=== PATIENT | male | born 1940 | race Caucasian/White ===

== ENCOUNTER 2019-06-20 11:12 | Inpatient (IN) | payer MEDICARE, OTHER ==
[~2019-06-20] VITALS: Ht 167.6 cm; Wt 70.7 kg
--- NOTE | 2019-06-20 11:29 | NUR ---
SWATI. REPORT RECEIVED FROM EMS. PT HAS BEEN LETHALGIC X 5 DAYS. (PT IS FROM [place]) PT'S SON TOOK HIM TO URGENT CARE AND SPO2 WAS 85% WITH RA. HX OF AR(PACEMAKER). ALTERED MENTAL STATUS PER PT'S SONS. PT'S SON STATES "HE IS SHARP, BUT HE IS OUT FOR A FEW DAYS." PT C/O CP YESTERDAY BUT ALL RESOLVED. PT'S AOX4. RESPS EVEN AND UNLABORED. ALL MONITORS IN PLACE. CALL LIGHT WITHIN REACH. SINUS TACHY ON MERGERS AND ACQUISITIONS MANAGER RATE 100'S AT THIS TIME. PT'S SONS AT BEDSIDE NOW.
--- NOTE | 2019-06-20 11:41 | NUR ---
URINAL AT BEDSIDE. PT AND PT'S SONS AWARE OF UA.
--- NOTE | 2019-06-20 11:41 | NUR ---
EKG AT BEDSIDE BY EMT.
[2019-06-20] MEDS ORDERED: SODIUM CHLORIDE FLUSH 10ML SYR IVF ONE (12:00)
[2019-06-20 12:09] LABS: MEAN CORPUSCULAR HEMOGLOBIN 36.7 pg (27.5-34.5); MEAN CORPUSCULAR HGB CONC 33.3 g/dL (33.2-36.2); MEAN CORPUSCULAR VOLUME 110.2 fL (81-97); MEAN PLATELET VOLUME 8.4 fL (7.4-10.4); PLATELET COUNT 208 x10^3/uL (130-400); RED BLOOD COUNT 3.63 x10^6/uL (4.38-5.82); RED CELL DISTRIBUTION WIDTH 13.3 % (9.4-14.8)
--- NOTE | 2019-06-20 12:12 | NUR ---
BLADDER SCAN SHOWED PT HAS ABOUT 200ML URINE. PT STATES "I CAN'T PEE."
[2019-06-20 12:13] LABS: ALBUMIN 3.2 g/dL (3.4-5.0); ANION GAP 8 mmol/L (5-15); CALCIUM 8.7 mg/dL (8.5-10.1); CHLORIDE 91 mmol/L (98-107); CREATININE 1.86 mg/dL (0.7-1.3)
[2019-06-20 12:17] LABS: ALKALINE PHOSPHATASE 98 U/L (45-117); BILIRUBIN,TOTAL 0.9 mg/dL (0.2-1.0); TOTAL PROTEIN 6.8 g/dL (6.4-8.2)
[2019-06-20 12:29] LABS: ALANINE AMINOTRANSFERASE 3466 U/L (12-78)
--- NOTE | 2019-06-20 12:31 | NUR ---
BREAK RN: PT UPRIGHT ON GURNEY WITH EYES CLOSED, RESPONDS APPROP TO STAFF, NAD, NO NEEDS AT THIS TIME, CALL LIGHT WITHIN REACH.
--- NOTE | 2019-06-20 12:45 | NUR ---
RAYMUNDO CORTEZ AT
[2019-06-20 12:48] LABS: MD MORPH REVIEW ONLY
[2019-06-20 12:49] LABS: ANISOCYTOSIS 1+; BASOPHILS # (AUTO) 0.04 x10^3/uL (0-0.1); BASOPHILS % (AUTO) 0 % (0-1); EOSINOPHILS % (AUTO) 0 % (1-7); LYMPHOCYTES # (AUTO) 0.76 x10^3/uL (1-3.4); LYMPHOCYTES % (AUTO) 6 % (22-44); MONOCYTES # (AUTO) 0.39 x10^3/uL (0.2-0.8); MONOCYTES % (AUTO) 3 % (2-9); NEUTROPHILS # (AUTO) 10.87 x10^3/uL (1.8-6.8); NEUTROPHILS % (AUTO) 90 % (42-75); PMNS WITH VACUOLES 1+; POLYCHROMASIA 1+
[2019-06-20 12:50] LABS: <PLATELET ESTIMATE> ADEQUATE; LARGE PLATELETS 1+
[2019-06-20 12:56] LABS: INTERNATIONAL NORMALIZED RATIO 1.53 (0.93-1.1); PROTHROMBIN TIME 15.8 Seconds (9.6-11.5)
--- NOTE | 2019-06-20 12:56 | NUR ---
called echo / coming now
--- NOTE | 2019-06-20 12:57 | NUR ---
PT UNABLE TO VOID, PT TOLERATED STRAIGHT CATH WELL, 100ML CONCENTRATED URINE OBTAINED, BLADDER EMPTY, UA SAMPLE SENT TO LAB, [facility] ARRIVED AT BS, [facility] CURRENTLY AT BS.
[2019-06-20] MEDS ORDERED: HEPARIN 5,000 UNITS/ML, 1ML IV ONE (13:00)
[2019-06-20] MEDS ORDERED: hydrALAzine 20 MG/ML, 1ML IVPush PRN (13:30)
[2019-06-20] MEDS ORDERED: OXYcodone IR 5MG TABLET PO PRN (13:30)
[2019-06-20] MEDS ORDERED: LORazepam 0.5MG TABLET PO PRN (13:30)
[2019-06-20] MEDS ORDERED: LORazepam 1MG TABLET PO PRN ×4 (13:30)
[2019-06-20] MEDS ORDERED: morphine SULFATE 10 MG/ML, 1ML IVPush PRN (13:30)
[2019-06-20] MEDS ORDERED: FOLIC ACID 5 MG/ML IM ONE ×2 (13:30→21:30)
[2019-06-20] MEDS: NICOTINE 14MG/24 HR PATCH.TD24 TD SCH (13:30)
[2019-06-20] MEDS ORDERED: LORazepam 2 MG/ML, 1ML IV PRN ×5 (13:30)
[2019-06-20] MEDS ORDERED: ONDANSETRON ODT 4 MG PO PRN (13:30)
[2019-06-20] MEDS ORDERED: PROMETHAZINE 25 MG/ML, 1ML IM PRN (13:30)
[2019-06-20] MEDS ORDERED: NITROGLYCERIN 0.4 MG BOTTLE (25 TABS) SL PRN (13:30)
[2019-06-20] MEDS ORDERED: HEPARIN 5,000 UNITS/ML, 1ML ONE (13:34)
[2019-06-20] MEDS ORDERED: HEPARIN 25,000 UNITS/500ML PMX 500 ML ONE (13:34)
[2019-06-20 14:01] LABS: MICROSCOPIC INDICATED
[2019-06-20 14:05] LABS: CULTURE INDICATED? YES
[2019-06-20] MEDS: HEPARIN 25,000 UNITS/500ML PMX 500 ML IV PRN ×2 (14:07→18:29)
--- NOTE | 2019-06-20 14:08 | NUR ---
HEPARIN DRIP STARTED AT THIS TIME. PT TOLERATED WELL.
--- NOTE | 2019-06-20 15:40 | NUR ---
PT RESTING IN [facility]. PT'S AOX4. RESPS EVEN AND UNLABORED. ALL MONITORS IN PLACE. CALL LIGHT WITHIN REACH. FAMILY AT BEDSIDE AT THIS TIME.
--- NOTE | 2019-06-20 16:25 | NUR ---
pt is resting in [place]. resps even and unlabored. pt's aox4. all monitors in place. call light within reach. family at bedside.
--- NOTE | 2019-06-20 16:47 | NUR ---
report given to fidel kelly. all questions answered.
[2019-06-20] MEDS ORDERED: THIAMINE 200 MG in DEXTROSE 5% 50 ML IVPB ONE ×2 (17:00→21:30)
[2019-06-20 19:42] VITALS: BP 100/60
[2019-06-20] MEDS: HEPARIN 5,000 UNITS/ML, 1ML IV PRN (20:13)
[2019-06-20 20:41] LABS: ANION GAP 3 mmol/L (5-15); CALCIUM 8.5 mg/dL (8.5-10.1); CHLORIDE 92 mmol/L (98-107); CREATININE 1.52 mg/dL (0.7-1.3)
[2019-06-20 20:57] LABS: ALANINE AMINOTRANSFERASE 2825 U/L (12-78); ALKALINE PHOSPHATASE 90 U/L (45-117); BILIRUBIN,TOTAL 0.8 mg/dL (0.2-1.0); TOTAL PROTEIN 6.6 g/dL (6.4-8.2)
[2019-06-20] MEDS: SODIUM CHLORIDE 1 GM TABLET PO SCH (21:50)
[2019-06-20 22:27] LABS: AMPHETAMINE SCREEN, URINE Negative (Negative); BARBITURATE SCREEN, URINE Negative (Negative); BENZODIAZEPINE SCREEN, URINE Negative (Negative); CANNABINOID SCREEN, URINE Negative (Negative); COCAINE SCREEN, URINE Negative (Negative); METHADONE SCREEN, URINE Negative (Negative); OPIATE SCREEN, URINE Negative (Negative)
[2019-06-21] MEDS: HEPARIN 5,000 UNITS/ML, 1ML IV PRN ×2 (02:39→15:03)
[2019-06-21] MEDS: SODIUM CHLORIDE 1 GM TABLET PO SCH ×4 (04:00→21:40)
[2019-06-21 04:16] LABS: MEAN CORPUSCULAR HEMOGLOBIN 35.6 pg (27.5-34.5); MEAN CORPUSCULAR HGB CONC 32.2 g/dL (33.2-36.2); MEAN CORPUSCULAR VOLUME 110.3 fL (81-97); PLATELET COUNT 190 x10^3/uL (130-400); RED BLOOD COUNT 3.68 x10^6/uL (4.38-5.82); RED CELL DISTRIBUTION WIDTH 13.8 % (9.4-14.8)
[2019-06-21 04:21] LABS: ALBUMIN 2.7 g/dL (3.4-5.0); ANION GAP 3 mmol/L (5-15); CALCIUM 8.4 mg/dL (8.5-10.1); CHLORIDE 95 mmol/L (98-107); CREATININE 1.05 mg/dL (0.7-1.3)
[2019-06-21 04:32] LABS: ALANINE AMINOTRANSFERASE 2393 U/L (12-78); ALKALINE PHOSPHATASE 85 U/L (45-117); BILIRUBIN,TOTAL 0.8 mg/dL (0.2-1.0); TOTAL PROTEIN 6.2 g/dL (6.4-8.2)
[2019-06-21 04:34] LABS: BASOPHILS # (AUTO) 0.03 x10^3/uL (0-0.1); BASOPHILS % (AUTO) 0 % (0-1); EOSINOPHILS % (AUTO) 0 % (1-7); LYMPHOCYTES # (AUTO) 0.92 x10^3/uL (1-3.4); LYMPHOCYTES % (AUTO) 9 % (22-44); MD SCAN; MONOCYTES # (AUTO) 0.31 x10^3/uL (0.2-0.8); MONOCYTES % (AUTO) 3 % (2-9); NEUTROPHILS # (AUTO) 8.64 x10^3/uL (1.8-6.8); NEUTROPHILS % (AUTO) 87 % (42-75)
[2019-06-21] MEDS ORDERED: ASPIRIN 325 MG TABLET EC PO SCH (06:00)
[2019-06-21] MEDS ORDERED: LORazepam 2 MG/ML, 1ML IVPush PRN (07:00)
[2019-06-21] MEDS ORDERED: ETOMIDATE 20 MG/10 ML ONE (08:00)
[2019-06-21] MEDS ORDERED: ROCURONIUM 10 MG/ML,10ML ONE (08:00)
[2019-06-21] MEDS ORDERED: FENTANYL PF 100 MCG/2ML ONE (08:53)
[2019-06-21] MEDS: THIAMINE 200 MG in SODIUM CHLORIDE 0.9% 50 ML IV SCH (09:00)
[2019-06-21] MEDS: MULTIVITAMINS/MINERALS TABLET PO SCH (09:00)
[2019-06-21] MEDS ORDERED: LACTULOSE 20 GM/30 ML UDC NG PRN (09:30)
[2019-06-21] MEDS ORDERED: SENNA 176 MG/5 ML ORAL SOL NG PRN (09:30)
[2019-06-21] MEDS ORDERED: POTASSIUM CHLORIDE 20 MEQ, MAGNESIUM SULFATE 1 GM, THIAMINE 200 MG, FOLIC ACID 1 MG, MV... IV SCH (09:30)
[2019-06-21] MEDS ORDERED: FENTANYL PF 100 MCG/2ML IVPush PRN ×2 (09:30→14:00)
[2019-06-21] MEDS ORDERED: PHARMACY MAY ADJ FOR RENAL FX MC SCH (09:30)
[2019-06-21] MEDS ORDERED: LIDOCAINE-MPF 1%, 2ML ENDO PRN (09:30)
[2019-06-21] MEDS ORDERED: DEXTROSE 4 GM TAB.CHEW PO PRN (09:30)
[2019-06-21] MEDS ORDERED: BISACODYL 10 MG SUPP PR PRN (09:30)
[2019-06-21] MEDS ORDERED: DEXTROSE 50%, 50ML SYRINGE IVPush PRN (09:30)
[2019-06-21] MEDS ORDERED: SENNA/DOCUSATE TABLET NG PRN (09:30)
[2019-06-21] MEDS ORDERED: GLUCAGON 1 MG IM PRN (09:30)
[2019-06-21] MEDS: DEXMEDETOMIDINE 200 MCG in SODIUM CHLORIDE 0.9% 48 ML IV PRN (09:44)
[2019-06-21 10:28] LABS: MEAN CORPUSCULAR HEMOGLOBIN 35.7 pg (27.5-34.5); MEAN CORPUSCULAR HGB CONC 32.5 g/dL (33.2-36.2); MEAN CORPUSCULAR VOLUME 109.7 fL (81-97); MEAN PLATELET VOLUME 8.1 fL (7.4-10.4); PLATELET COUNT 215 x10^3/uL (130-400); RED BLOOD COUNT 3.82 x10^6/uL (4.38-5.82); RED CELL DISTRIBUTION WIDTH 14.2 % (9.4-14.8)
[2019-06-21 10:35] LABS: INTERNATIONAL NORMALIZED RATIO 1.36 (0.93-1.1); PROTHROMBIN TIME 14.1 Seconds (9.6-11.5)
[2019-06-21] MEDS: BUDESONIDE 0.5 MG/2 ML INHA INH SCH ×2 (10:55→22:23)
[2019-06-21] MEDS: ALBUTEROL/IPRATROPIUM 2.5MG/0.5MG, 3 ML INLINE SCH ×4 (10:55→23:00)
[2019-06-21] MEDS: INSULIN LISPRO 100 UNITS/ML, PEN SQ-INSULIN SCH ×3 (11:00→20:26)
[2019-06-21] MEDS: FAMOTIDINE 20 MG/2 ML IVPush SCH (11:17)
[2019-06-21] MEDS: NICOTINE 14MG/24 HR PATCH.TD24 TD SCH (11:22)
[2019-06-21] MEDS ORDERED: DIAZEPAM 5 MG/ML, 10ML VIAL IV SCH (14:00)
[2019-06-21 14:09] LABS: MEAN CORPUSCULAR HEMOGLOBIN 35.5 pg (27.5-34.5); MEAN CORPUSCULAR HGB CONC 32.3 g/dL (33.2-36.2); MEAN CORPUSCULAR VOLUME 109.8 fL (81-97); MEAN PLATELET VOLUME 8.1 fL (7.4-10.4); PLATELET COUNT 194 x10^3/uL (130-400); RED BLOOD COUNT 3.84 x10^6/uL (4.38-5.82)
[2019-06-21] MEDS ORDERED: DIAZEPAM 5 MG/ML, 10ML VIAL IV PRN (15:00)
[2019-06-21] MEDS: AMPICILLIN/SULBACTAM 3 GM in SODIUM CHLORIDE 0.9% 100 ML IV SCH ×2 (15:03→23:08)
[2019-06-21] MEDS: HEPARIN 25,000 UNITS/500ML PMX 500 ML IV PRN (15:08)
[2019-06-21] MEDS ORDERED: NOREPINEPHRINE 4 MG in SODIUM CHLORIDE 0.9% 246 ML IV PRN (15:30)
[2019-06-21] MEDS ORDERED: SPIR25TA5 PO (17:22)
[2019-06-21] MEDS ORDERED: CARV-39 PO (17:22)
[2019-06-21] MEDS ORDERED: CLOP75TA PO (17:22)
[2019-06-21] MEDS ORDERED: LISI-170 PO (17:22)
[2019-06-21] MEDS ORDERED: ATOR40TA78 PO (17:22)
[2019-06-21] MEDS: DEXMEDETOMIDINE 1,000 MCG in SODIUM CHLORIDE 0.9% 240 ML IV PRN (18:13)
[2019-06-21] MEDS ORDERED: MAGNESIUM SULFATE PMX 2GM/50ML 50 ML IV ONE (19:00)
[2019-06-21] MEDS ORDERED: DIGOXIN 0.25 MG/ML, 2ML IVPush ONE (19:00)
[2019-06-21] MEDS ORDERED: AMIODARONE 300 MG in DEXTROSE 5% 100 ML IV ONE (19:00)
[2019-06-21] MEDS: FILTER 0.22 MICRON FOR AMIODARONE IV PRN (19:02)
[2019-06-21] MEDS: AMIODARONE 900 MG in DEXTROSE 5% 482 ML IV PRN (19:36)
[2019-06-21 20:33] LABS: MEAN CORPUSCULAR HEMOGLOBIN 36.4 pg (27.5-34.5); MEAN CORPUSCULAR HGB CONC 32.8 g/dL (33.2-36.2); MEAN CORPUSCULAR VOLUME 110.9 fL (81-97); MEAN PLATELET VOLUME 8.6 fL (7.4-10.4); PLATELET COUNT 181 x10^3/uL (130-400); RED BLOOD COUNT 3.34 x10^6/uL (4.38-5.82)
[2019-06-21] MEDS: SODIUM CHLORIDE FLUSH 10ML SYR IVF SCH (21:40)
[2019-06-21] MEDS: DIAZEPAM 5 MG/ML, 2ML IV PRN (22:57)
[2019-06-22] MEDS: ALBUTEROL/IPRATROPIUM 2.5MG/0.5MG, 3 ML INLINE SCH ×6 (02:10→22:42)
[2019-06-22 04:22] LABS: INTERNATIONAL NORMALIZED RATIO 1.34 (0.93-1.1); PROTHROMBIN TIME 13.9 Seconds (9.6-11.5)
[2019-06-22 04:26] LABS: ALBUMIN 2.1 g/dL (3.4-5.0); ANION GAP 2 mmol/L (5-15); CALCIUM 8.1 mg/dL (8.5-10.1); CHLORIDE 98 mmol/L (98-107)
[2019-06-22 04:28] LABS: MEAN CORPUSCULAR HEMOGLOBIN 35.8 pg (27.5-34.5); MEAN CORPUSCULAR HGB CONC 32.6 g/dL (33.2-36.2); MEAN CORPUSCULAR VOLUME 109.9 fL (81-97); MEAN PLATELET VOLUME 8.3 fL (7.4-10.4); PLATELET COUNT 172 x10^3/uL (130-400); RED BLOOD COUNT 3.47 x10^6/uL (4.38-5.82)
[2019-06-22 04:35] LABS: ALANINE AMINOTRANSFERASE 1481 U/L (12-78); ALKALINE PHOSPHATASE 78 U/L (45-117); BILIRUBIN,TOTAL 1.5 mg/dL (0.2-1.0); CREATININE 0.85 mg/dL (0.7-1.3); TOTAL PROTEIN 5.4 g/dL (6.4-8.2)
[2019-06-22] MEDS ORDERED: ASPIRIN 325 MG TABLET ONE (05:05)
[2019-06-22] MEDS: HEPARIN 5,000 UNITS/ML, 1ML IV PRN (05:07)
[2019-06-22] MEDS: SODIUM CHLORIDE 1 GM TABLET PO SCH ×4 (05:07→22:01)
[2019-06-22 05:08] LABS: MD YES
[2019-06-22 05:09] LABS: ANISOCYTOSIS 1+; BAND#(MANUAL) 0.21 x10^3/uL; BANDS%(MANUAL) 2 % (0-7); LYMPH#(MANUAL) 0.32 x10^3/uL (1-3.4); LYMPHS% (MANUAL) 3 % (22-44); METAMYELOCYTES# (MANUAL) 0.11 x10^3/uL (0-0); METAMYELOCYTES% (MANUAL) 1 % (0-1); MONOS#(MANUAL) 0.42 x10^3/uL (0.3-2.7); MONOS% (MANUAL) 4 % (2-9); MYELOCYTES# (MANUAL) 0.11 x10^3/uL (0-0); MYELOCYTES% (MANUAL) 1 % (0-0); SEG#(MANUAL) 9.43 x10^3/uL (1.8-6.8); SEGS% (MANUAL) 89 % (42-75)
[2019-06-22 05:10] LABS: POLYCHROMASIA 1+
[2019-06-22 05:11] LABS: <PLATELET ESTIMATE> ADEQUATE; <PLT MORPHOLOGY> NORMAL PLT MORPH
[2019-06-22] MEDS: ASPIRIN 325 MG TABLET PO SCH (05:22)
[2019-06-22] MEDS ORDERED: ASPIRIN 81 MG TABLET CHEW PO SCH (06:00)
[2019-06-22] MEDS: BUDESONIDE 0.5 MG/2 ML INHA INH SCH ×2 (07:05→21:00)
[2019-06-22] MEDS: THIAMINE 200 MG in SODIUM CHLORIDE 0.9% 50 ML IV SCH (09:47)
[2019-06-22] MEDS: AMPICILLIN/SULBACTAM 3 GM in SODIUM CHLORIDE 0.9% 100 ML IV SCH ×2 (09:47→16:14)
[2019-06-22] MEDS: SODIUM CHLORIDE FLUSH 10ML SYR IVF SCH ×2 (09:47→22:01)
[2019-06-22] MEDS: MULTIVITAMINS/MINERALS TABLET PO SCH (10:00)
[2019-06-22] MEDS: FAMOTIDINE 20 MG/2 ML IVPush SCH (10:00)
[2019-06-22] MEDS ORDERED: MIDAZOLAM 1 MG/ML, 2ML ONE (10:26)
[2019-06-22] MEDS: INSULIN LISPRO 100 UNITS/ML, PEN SQ-INSULIN SCH ×3 (11:00→22:00)
[2019-06-22 12:12] LABS: MEAN CORPUSCULAR HEMOGLOBIN 35.4 pg (27.5-34.5); MEAN CORPUSCULAR HGB CONC 32.1 g/dL (33.2-36.2); MEAN CORPUSCULAR VOLUME 110.3 fL (81-97); PLATELET COUNT 172 x10^3/uL (130-400); RED CELL DISTRIBUTION WIDTH 14.1 % (9.4-14.8)
[2019-06-22] MEDS: HEPARIN 25,000 UNITS/500ML PMX 500 ML IV PRN (14:06)
[2019-06-22] MEDS: NICOTINE 14MG/24 HR PATCH.TD24 TD SCH (14:07)
[2019-06-22] MEDS: AMIODARONE 900 MG in DEXTROSE 5% 482 ML IV PRN (16:12)
[2019-06-22] MEDS: DEXMEDETOMIDINE 1,000 MCG in SODIUM CHLORIDE 0.9% 240 ML IV PRN ×2 (16:12→22:11)
[2019-06-22] MEDS: DIAZEPAM 5 MG/ML, 2ML IV PRN (19:44)
[2019-06-23] MEDS: AMPICILLIN/SULBACTAM 3 GM in SODIUM CHLORIDE 0.9% 100 ML IV SCH (00:28)
[2019-06-23] MEDS: DIAZEPAM 5 MG/ML, 2ML IV PRN (01:25)
[2019-06-23] MEDS: ALBUTEROL/IPRATROPIUM 2.5MG/0.5MG, 3 ML INLINE SCH ×6 (02:48→22:13)
[2019-06-23 04:39] LABS: BASOPHILS # (AUTO) 0.03 x10^3/uL (0-0.1); BASOPHILS % (AUTO) 0 % (0-1); EOSINOPHILS # (AUTO) 0.01 x10^3/uL (0-0.4); EOSINOPHILS % (AUTO) 0 % (1-7); LYMPHOCYTES # (AUTO) 0.81 x10^3/uL (1-3.4); LYMPHOCYTES % (AUTO) 9 % (22-44); MD NO; MEAN CORPUSCULAR HEMOGLOBIN 35.7 pg (27.5-34.5); MEAN CORPUSCULAR HGB CONC 32.7 g/dL (33.2-36.2); MEAN CORPUSCULAR VOLUME 109.2 fL (81-97); MEAN PLATELET VOLUME 8.1 fL (7.4-10.4); MONOCYTES # (AUTO) 0.71 x10^3/uL (0.2-0.8); MONOCYTES % (AUTO) 8 % (2-9); NEUTROPHILS # (AUTO) 7.16 x10^3/uL (1.8-6.8); NEUTROPHILS % (AUTO) 82 % (42-75); PLATELET COUNT 141 x10^3/uL (130-400); RED BLOOD COUNT 3.56 x10^6/uL (4.38-5.82); RED CELL DISTRIBUTION WIDTH 14.3 % (9.4-14.8)
[2019-06-23 04:51] LABS: ANION GAP 3 mmol/L (5-15); CALCIUM 8.2 mg/dL (8.5-10.1); CHLORIDE 100 mmol/L (98-107); CREATININE 0.67 mg/dL (0.7-1.3)
[2019-06-23] MEDS: SODIUM CHLORIDE 1 GM TABLET PO SCH ×4 (04:54→21:45)
[2019-06-23] MEDS: INSULIN LISPRO 100 UNITS/ML, PEN SQ-INSULIN SCH ×4 (05:00→21:46)
[2019-06-23] MEDS: ASPIRIN 325 MG TABLET PO SCH (05:08)
[2019-06-23] MEDS: FILTER 0.22 MICRON FOR AMIODARONE IV PRN (05:08)
[2019-06-23] MEDS: BUDESONIDE 0.5 MG/2 ML INHA INH SCH ×2 (07:16→19:09)
[2019-06-23] MEDS: LEVOFLOXACIN/PMX 750MG/150ML 150 ML IV SCH (08:13)
[2019-06-23] MEDS: MULTIVITAMINS/MINERALS TABLET PO SCH (10:11)
[2019-06-23] MEDS: SODIUM CHLORIDE FLUSH 10ML SYR IVF SCH ×2 (10:12→21:42)
[2019-06-23] MEDS: AMIODARONE 200 MG TABLET PO SCH ×2 (10:12→21:45)
[2019-06-23] MEDS: DIAZEPAM 5 MG/ML, 2ML IV SCH ×4 (10:12→21:42)
[2019-06-23] MEDS: FAMOTIDINE 20 MG/2 ML IVPush SCH (10:12)
[2019-06-23] MEDS: THIAMINE 200 MG in SODIUM CHLORIDE 0.9% 50 ML IV SCH (10:18)
[2019-06-23] MEDS: HEPARIN 25,000 UNITS/500ML PMX 500 ML IV PRN (11:37)
[2019-06-23] MEDS: DEXMEDETOMIDINE 200 MCG in SODIUM CHLORIDE 0.9% 48 ML IV PRN ×2 (12:10→22:28)
[2019-06-23] MEDS: NICOTINE 14MG/24 HR PATCH.TD24 TD SCH (14:43)
[2019-06-23] MEDS: ATORVASTATIN 40 MG TABLET PO SCH (21:45)
[2019-06-24] MEDS: ALBUTEROL/IPRATROPIUM 2.5MG/0.5MG, 3 ML INLINE SCH ×3 (02:27→11:25)
[2019-06-24] MEDS: DEXMEDETOMIDINE 200 MCG in SODIUM CHLORIDE 0.9% 48 ML IV PRN (03:45)
[2019-06-24] MEDS: SODIUM CHLORIDE 1 GM TABLET PO SCH ×4 (03:50→23:14)
[2019-06-24] MEDS: DIAZEPAM 5 MG/ML, 2ML IV SCH ×2 (03:50→10:00)
[2019-06-24 04:30] LABS: MEAN CORPUSCULAR HEMOGLOBIN 35.7 pg (27.5-34.5); MEAN CORPUSCULAR HGB CONC 32.6 g/dL (33.2-36.2); MEAN CORPUSCULAR VOLUME 109.6 fL (81-97); MEAN PLATELET VOLUME 8.5 fL (7.4-10.4); PLATELET COUNT 120 x10^3/uL (130-400); RED BLOOD COUNT 3.19 x10^6/uL (4.38-5.82); RED CELL DISTRIBUTION WIDTH 14.4 % (9.4-14.8)
[2019-06-24 04:38] LABS: ANION GAP 3 mmol/L (5-15); CALCIUM 7.8 mg/dL (8.5-10.1); CHLORIDE 105 mmol/L (98-107); CREATININE 0.77 mg/dL (0.7-1.3); TRIGLYCERIDES 68 mg/dL (50-200)
[2019-06-24 04:56] LABS: BASOPHILS # (AUTO) 0.01 x10^3/uL (0-0.1); BASOPHILS % (AUTO) 0 % (0-1); EOSINOPHILS # (AUTO) 0.02 x10^3/uL (0-0.4); EOSINOPHILS % (AUTO) 0 % (1-7); LYMPHOCYTES # (AUTO) 0.58 x10^3/uL (1-3.4); LYMPHOCYTES % (AUTO) 8 % (22-44); MD SCAN; MONOCYTES # (AUTO) 0.31 x10^3/uL (0.2-0.8); MONOCYTES % (AUTO) 4 % (2-9); NEUTROPHILS # (AUTO) 6.75 x10^3/uL (1.8-6.8); NEUTROPHILS % (AUTO) 88 % (42-75)
[2019-06-24] MEDS: INSULIN LISPRO 100 UNITS/ML, PEN SQ-INSULIN SCH ×2 (05:13→11:00)
[2019-06-24] MEDS: HEPARIN 5,000 UNITS/ML, 1ML IV PRN (05:47)
[2019-06-24] MEDS: ASPIRIN 325 MG TABLET PO SCH (05:47)
[2019-06-24] MEDS: HEPARIN 25,000 UNITS/500ML PMX 500 ML IV PRN (05:48)
[2019-06-24] MEDS: BUDESONIDE 0.5 MG/2 ML INHA INH SCH ×2 (09:00→19:03)
[2019-06-24] MEDS: ENOXAPARIN 40 MG/0.4 ML SQ SCH (10:00)
[2019-06-24] MEDS: THIAMINE 200 MG in SODIUM CHLORIDE 0.9% 50 ML IV SCH (10:20)
[2019-06-24] MEDS: AMIODARONE 200 MG TABLET PO SCH ×2 (10:20→21:37)
[2019-06-24] MEDS: MULTIVITAMINS/MINERALS TABLET PO SCH (10:20)
[2019-06-24] MEDS: LEVOFLOXACIN/PMX 750MG/150ML 150 ML IV SCH (10:21)
[2019-06-24] MEDS: FAMOTIDINE 20 MG/2 ML IVPush SCH (11:18)
[2019-06-24] MEDS: SODIUM CHLORIDE FLUSH 10ML SYR IVF SCH ×2 (11:19→21:36)
[2019-06-24] MEDS: NICOTINE 14MG/24 HR PATCH.TD24 TD SCH (14:56)
[2019-06-24] MEDS: ALBUTEROL/IPRATROPIUM 2.5MG/0.5MG, 3 ML NPPB SCH ×2 (15:00→19:04)
[2019-06-24] MEDS: ATORVASTATIN 40 MG TABLET PO SCH (21:36)
[2019-06-25] MEDS ORDERED: ALBUTEROL/IPRATROPIUM 2.5MG/0.5MG, 3 ML IPPB PRN
[2019-06-25 04:40] LABS: MEAN CORPUSCULAR HGB CONC 32.3 g/dL (33.2-36.2); MEAN CORPUSCULAR VOLUME 111.5 fL (81-97); MEAN PLATELET VOLUME 8.8 fL (7.4-10.4); PLATELET COUNT 125 x10^3/uL (130-400)
[2019-06-25 04:47] LABS: CALCIUM 8.3 mg/dL (8.5-10.1); CREATININE 0.77 mg/dL (0.7-1.3)
[2019-06-25 04:55] LABS: CHLORIDE 107 mmol/L (98-107)
[2019-06-25 05:02] LABS: ANION GAP 1 mmol/L (5-15)
[2019-06-25 05:12] LABS: BASOPHILS # (AUTO) 0.01 x10^3/uL (0-0.1); BASOPHILS % (AUTO) 0 % (0-1); EOSINOPHILS # (AUTO) 0.13 x10^3/uL (0-0.4); EOSINOPHILS % (AUTO) 2 % (1-7); LYMPHOCYTES # (AUTO) 0.66 x10^3/uL (1-3.4); LYMPHOCYTES % (AUTO) 9 % (22-44); MD SCAN; MONOCYTES # (AUTO) 0.27 x10^3/uL (0.2-0.8); MONOCYTES % (AUTO) 3 % (2-9); NEUTROPHILS # (AUTO) 6.67 x10^3/uL (1.8-6.8); NEUTROPHILS % (AUTO) 86 % (42-75)
[2019-06-25] MEDS: ASPIRIN 325 MG TABLET PO SCH (06:12)
[2019-06-25] MEDS: SODIUM CHLORIDE 1 GM TABLET PO SCH (06:12)
[2019-06-25] MEDS: BUDESONIDE 0.5 MG/2 ML INHA INH SCH ×2 (07:00→20:01)
[2019-06-25] MEDS: ALBUTEROL/IPRATROPIUM 2.5MG/0.5MG, 3 ML NPPB SCH (07:00)
[2019-06-25] MEDS: LEVOFLOXACIN/PMX 750MG/150ML 150 ML IV SCH (08:05)
[2019-06-25] MEDS: MULTIVITAMINS/MINERALS TABLET PO SCH (08:06)
[2019-06-25] MEDS: SODIUM CHLORIDE FLUSH 10ML SYR IVF SCH ×2 (08:06→20:58)
[2019-06-25] MEDS: FAMOTIDINE 20 MG/2 ML IVPush SCH (08:06)
[2019-06-25] MEDS: AMIODARONE 200 MG TABLET PO SCH ×2 (08:06→20:59)
[2019-06-25] MEDS ORDERED: ALBUTEROL/IPRATROPIUM 2.5MG/0.5MG, 3 ML NPPB PRN (09:00)
[2019-06-25] MEDS: THIAMINE 200 MG in SODIUM CHLORIDE 0.9% 50 ML IV SCH (10:11)
[2019-06-25] MEDS: LACTOBACILLUS CHEW TABLET PO SCH ×3 (10:21→20:59)
[2019-06-25] MEDS: ENOXAPARIN 40 MG/0.4 ML SQ SCH (10:22)
--- NOTE | 2019-06-25 11:13 | NUR ---
REC GROUND/THIN; ORANGE SHEET WITH DIET RECS AND SWALLOW STRATEGIES POSTED AT BEDSIDE. Addendum: 06/25/19 at 1113 by Celestina TURNER Amended: Links added.
[2019-06-25 13:58] VITALS: BP 102/52
[2019-06-25] MEDS: NICOTINE 14MG/24 HR PATCH.TD24 TD SCH (14:00)
[2019-06-25 20:53] VITALS: BP 105/64
[2019-06-25] MEDS: ATORVASTATIN 40 MG TABLET PO SCH (20:58)
[2019-06-26 00:42] VITALS: BP 121/70
[2019-06-26] MEDS: ASPIRIN 325 MG TABLET PO SCH (05:34)
[2019-06-26 05:44] LABS: MEAN CORPUSCULAR HEMOGLOBIN 36.1 pg (27.5-34.5); MEAN CORPUSCULAR HGB CONC 32.4 g/dL (33.2-36.2); MEAN CORPUSCULAR VOLUME 111.3 fL (81-97); MEAN PLATELET VOLUME 9.1 fL (7.4-10.4); PLATELET COUNT 132 x10^3/uL (130-400); RED BLOOD COUNT 3.17 x10^6/uL (4.38-5.82); RED CELL DISTRIBUTION WIDTH 15.1 % (9.4-14.8)
[2019-06-26 05:55] LABS: ALBUMIN 1.9 g/dL (3.4-5.0); ANION GAP 3 mmol/L (5-15); CALCIUM 8.3 mg/dL (8.5-10.1); CHLORIDE 101 mmol/L (98-107)
[2019-06-26 06:24] LABS: ALANINE AMINOTRANSFERASE 389 U/L (12-78); ALKALINE PHOSPHATASE 117 U/L (45-117); BILIRUBIN,TOTAL 1.3 mg/dL (0.2-1.0); CREATININE 0.72 mg/dL (0.7-1.3); TOTAL PROTEIN 5.5 g/dL (6.4-8.2)
[2019-06-26 06:33] LABS: BASOPHILS # (AUTO) 0.02 x10^3/uL (0-0.1); BASOPHILS % (AUTO) 0 % (0-1); EOSINOPHILS # (AUTO) 0.33 x10^3/uL (0-0.4); EOSINOPHILS % (AUTO) 4 % (1-7); LYMPHOCYTES # (AUTO) 0.76 x10^3/uL (1-3.4); LYMPHOCYTES % (AUTO) 10 % (22-44); MD SCAN; MONOCYTES # (AUTO) 0.38 x10^3/uL (0.2-0.8); MONOCYTES % (AUTO) 5 % (2-9); NEUTROPHILS # (AUTO) 6.39 x10^3/uL (1.8-6.8); NEUTROPHILS % (AUTO) 81 % (42-75)
[2019-06-26 08:31] VITALS: BP 130/76
[2019-06-26] MEDS: MULTIVITAMINS/MINERALS TABLET PO SCH (08:42)
[2019-06-26] MEDS: LEVOFLOXACIN/PMX 750MG/150ML 150 ML IV SCH (08:42)
[2019-06-26] MEDS: LACTOBACILLUS CHEW TABLET PO SCH ×3 (08:42→20:17)
[2019-06-26] MEDS: FOLIC ACID 1 MG TABLET PO SCH (08:42)
[2019-06-26] MEDS: AMIODARONE 200 MG TABLET PO SCH ×2 (08:42→20:17)
[2019-06-26] MEDS: THIAMINE 100MG TABLET PO SCH (08:42)
[2019-06-26] MEDS: SODIUM CHLORIDE FLUSH 10ML SYR IVF SCH ×2 (08:45→20:17)
[2019-06-26] MEDS: BUDESONIDE 0.5 MG/2 ML INHA INH SCH ×2 (09:00→19:07)
[2019-06-26] MEDS: ENOXAPARIN 40 MG/0.4 ML SQ SCH (09:49)
[2019-06-26] MEDS: NICOTINE 14MG/24 HR PATCH.TD24 TD SCH (09:52)
--- NOTE | 2019-06-26 11:01 | NUR ---
REC INITIATION OF CHOPPED/THIN LIQUIDS; ORANGE SHEET WITH DIET RECS AND SWALLOW STRATEGIES POSTED AT BEDSIDE. Addendum: 06/26/19 at 1102 by Celestina TURNER Amended: Links added.
[2019-06-26] MEDS: LISINOPRIL 10 MG TABLET PO SCH (12:19)
[2019-06-26 20:10] VITALS: BP 127/76
[2019-06-26] MEDS: ATORVASTATIN 40 MG TABLET PO SCH (20:16)
[2019-06-27] MEDS: ASPIRIN 325 MG TABLET PO SCH (06:28)
[2019-06-27 06:40] LABS: MEAN CORPUSCULAR HGB CONC 32.5 g/dL (33.2-36.2); MEAN CORPUSCULAR VOLUME 110.9 fL (81-97); MEAN PLATELET VOLUME 8.9 fL (7.4-10.4); PLATELET COUNT 141 x10^3/uL (130-400); RED BLOOD COUNT 3.43 x10^6/uL (4.38-5.82); RED CELL DISTRIBUTION WIDTH 14.6 % (9.4-14.8)
[2019-06-27 06:49] LABS: ALANINE AMINOTRANSFERASE 319 U/L (12-78); ANION GAP 4 mmol/L (5-15); CALCIUM 8.9 mg/dL (8.5-10.1); CHLORIDE 100 mmol/L (98-107); CREATININE 0.74 mg/dL (0.7-1.3)
[2019-06-27 06:51] LABS: ALKALINE PHOSPHATASE 111 U/L (45-117); BILIRUBIN,TOTAL 1.3 mg/dL (0.2-1.0); TOTAL PROTEIN 5.9 g/dL (6.4-8.2)
[2019-06-27 07:03] VITALS: BP 126/78
[2019-06-27 07:03] LABS: BASOPHILS # (AUTO) 0.02 x10^3/uL (0-0.1); BASOPHILS % (AUTO) 0 % (0-1); EOSINOPHILS # (AUTO) 0.18 x10^3/uL (0-0.4); EOSINOPHILS % (AUTO) 2 % (1-7); LYMPHOCYTES # (AUTO) 0.68 x10^3/uL (1-3.4); LYMPHOCYTES % (AUTO) 9 % (22-44); MD SCAN; MONOCYTES # (AUTO) 0.46 x10^3/uL (0.2-0.8); MONOCYTES % (AUTO) 6 % (2-9); NEUTROPHILS # (AUTO) 6.53 x10^3/uL (1.8-6.8); NEUTROPHILS % (AUTO) 83 % (42-75)
[2019-06-27] MEDS: SODIUM CHLORIDE FLUSH 10ML SYR IVF SCH ×2 (07:50→20:42)
[2019-06-27] MEDS: AMIODARONE 200 MG TABLET PO SCH ×2 (07:55→20:41)
[2019-06-27] MEDS: MULTIVITAMINS/MINERALS TABLET PO SCH (07:55)
[2019-06-27] MEDS: LISINOPRIL 10 MG TABLET PO SCH (07:56)
[2019-06-27] MEDS: THIAMINE 100MG TABLET PO SCH (07:56)
[2019-06-27] MEDS: FOLIC ACID 1 MG TABLET PO SCH (07:56)
[2019-06-27] MEDS: LACTOBACILLUS CHEW TABLET PO SCH ×3 (07:56→20:40)
[2019-06-27] MEDS: ENOXAPARIN 40 MG/0.4 ML SQ SCH (07:56)
[2019-06-27] MEDS: LEVOFLOXACIN/PMX 750MG/150ML 150 ML IV SCH (07:57)
[2019-06-27] MEDS: BUDESONIDE 0.5 MG/2 ML INHA INH SCH ×2 (08:12→19:42)
[2019-06-27] MEDS: CARVEDILOL 3.125 MG TABLET PO SCH ×2 (10:16→16:05)
[2019-06-27 13:23] VITALS: BP 93/58
[2019-06-27] MEDS: NICOTINE 14MG/24 HR PATCH.TD24 TD SCH (16:10)
[2019-06-27 19:01] VITALS: BP 96/57
[2019-06-27] MEDS: ATORVASTATIN 40 MG TABLET PO SCH (20:41)
[2019-06-28 01:24] VITALS: BP 108/64
[2019-06-28] MEDS: ASPIRIN 325 MG TABLET PO SCH (06:06)
[2019-06-28] MEDS: CARVEDILOL 3.125 MG TABLET PO SCH ×2 (06:07→18:06)
[2019-06-28 06:22] LABS: MEAN CORPUSCULAR HEMOGLOBIN 35.8 pg (27.5-34.5); MEAN CORPUSCULAR HGB CONC 32.3 g/dL (33.2-36.2); MEAN CORPUSCULAR VOLUME 110.9 fL (81-97); MEAN PLATELET VOLUME 9.2 fL (7.4-10.4); PLATELET COUNT 148 x10^3/uL (130-400); RED BLOOD COUNT 3.18 x10^6/uL (4.38-5.82); RED CELL DISTRIBUTION WIDTH 14.4 % (9.4-14.8)
[2019-06-28 06:35] LABS: ALANINE AMINOTRANSFERASE 240 U/L (12-78); ALBUMIN 1.9 g/dL (3.4-5.0); ANION GAP 2 mmol/L (5-15); CALCIUM 8.7 mg/dL (8.5-10.1); CHLORIDE 102 mmol/L (98-107); CREATININE 0.73 mg/dL (0.7-1.3)
[2019-06-28 06:37] LABS: ALKALINE PHOSPHATASE 88 U/L (45-117); BILIRUBIN,TOTAL 0.8 mg/dL (0.2-1.0); TOTAL PROTEIN 5.5 g/dL (6.4-8.2)
[2019-06-28 06:45] LABS: BASOPHILS # (AUTO) 0.04 x10^3/uL (0-0.1); BASOPHILS % (AUTO) 1 % (0-1); EOSINOPHILS # (AUTO) 0.24 x10^3/uL (0-0.4); EOSINOPHILS % (AUTO) 4 % (1-7); LYMPHOCYTES # (AUTO) 0.82 x10^3/uL (1-3.4); LYMPHOCYTES % (AUTO) 15 % (22-44); MD SCAN; MONOCYTES % (AUTO) 7 % (2-9); NEUTROPHILS # (AUTO) 3.99 x10^3/uL (1.8-6.8); NEUTROPHILS % (AUTO) 73 % (42-75)
[2019-06-28 06:48] VITALS: BP 94/60
[2019-06-28] MEDS: BUDESONIDE 0.5 MG/2 ML INHA INH SCH ×2 (07:31→20:56)
[2019-06-28] MEDS: LEVOFLOXACIN/PMX 750MG/150ML 150 ML IV SCH (07:50)
[2019-06-28] MEDS: SODIUM CHLORIDE FLUSH 10ML SYR IVF SCH ×2 (08:12→21:54)
[2019-06-28] MEDS: AMIODARONE 200 MG TABLET PO SCH ×2 (08:12→21:54)
[2019-06-28] MEDS: ENOXAPARIN 40 MG/0.4 ML SQ SCH (08:17)
[2019-06-28] MEDS ORDERED: REGADENOSON 0.4 MG/5 ML SYRINGE ONE (09:09)
[2019-06-28 12:00] VITALS: BP 92/57
[2019-06-28] MEDS: MULTIVITAMINS/MINERALS TABLET PO SCH (12:05)
[2019-06-28] MEDS: FOLIC ACID 1 MG TABLET PO SCH (12:05)
[2019-06-28] MEDS: LACTOBACILLUS CHEW TABLET PO SCH ×3 (12:06→21:53)
[2019-06-28] MEDS: LISINOPRIL 10 MG TABLET PO SCH (12:06)
[2019-06-28] MEDS: THIAMINE 100MG TABLET PO SCH (12:06)
[2019-06-28] MEDS: NICOTINE 14MG/24 HR PATCH.TD24 TD SCH (12:13)
[2019-06-28 12:51] VITALS: BP 89/59
[2019-06-28] MEDS ORDERED: CLOPIDOGREL 300 MG TABLET PO ONE (14:30)
[2019-06-28 18:00] VITALS: BP 101/69
[2019-06-28 20:29] VITALS: BP 95/58
[2019-06-28] MEDS: ATORVASTATIN 40 MG TABLET PO SCH (21:54)
[2019-06-29] VITALS (8 sets, daily range): BP systolic 82–109; BP diastolic 48–66
[2019-06-29] MEDS: CARVEDILOL 3.125 MG TABLET PO SCH ×2 (05:51→18:28)
[2019-06-29] MEDS: ASPIRIN 81 MG TABLET CHEW PO SCH (05:51)
[2019-06-29 07:41] LABS: MEAN CORPUSCULAR HEMOGLOBIN 35.5 pg (27.5-34.5); MEAN CORPUSCULAR HGB CONC 32.6 g/dL (33.2-36.2); MEAN CORPUSCULAR VOLUME 108.9 fL (81-97); RED BLOOD COUNT 3.24 x10^6/uL (4.38-5.82); RED CELL DISTRIBUTION WIDTH 14.4 % (9.4-14.8)
[2019-06-29 07:48] LABS: ANION GAP 3 mmol/L (5-15); CALCIUM 8.7 mg/dL (8.5-10.1); CHLORIDE 101 mmol/L (98-107)
[2019-06-29 07:51] LABS: ALANINE AMINOTRANSFERASE 211 U/L (12-78); ALKALINE PHOSPHATASE 86 U/L (45-117); BILIRUBIN,TOTAL 0.8 mg/dL (0.2-1.0); CREATININE 0.81 mg/dL (0.7-1.3); TOTAL PROTEIN 5.6 g/dL (6.4-8.2)
[2019-06-29 07:56] LABS: BASOPHILS # (AUTO) 0.06 x10^3/uL (0-0.1); BASOPHILS % (AUTO) 1 % (0-1); EOSINOPHILS # (AUTO) 0.17 x10^3/uL (0-0.4); EOSINOPHILS % (AUTO) 3 % (1-7); LYMPHOCYTES # (AUTO) 0.99 x10^3/uL (1-3.4); LYMPHOCYTES % (AUTO) 16 % (22-44); MD SCAN; MEAN PLATELET VOLUME 8.5 fL (7.4-10.4); MONOCYTES # (AUTO) 0.42 x10^3/uL (0.2-0.8); MONOCYTES % (AUTO) 7 % (2-9); NEUTROPHILS # (AUTO) 4.43 x10^3/uL (1.8-6.8); NEUTROPHILS % (AUTO) 73 % (42-75); PLATELET COUNT 202 x10^3/uL (130-400)
[2019-06-29] MEDS: BUDESONIDE 0.5 MG/2 ML INHA INH SCH ×2 (08:18→20:42)
[2019-06-29] MEDS ORDERED: LISINOPRIL 10 MG TABLET PO SCH (09:00)
[2019-06-29] MEDS: ENOXAPARIN 40 MG/0.4 ML SQ SCH (09:33)
[2019-06-29] MEDS: LACTOBACILLUS CHEW TABLET PO SCH ×3 (09:33→21:08)
[2019-06-29] MEDS: THIAMINE 100MG TABLET PO SCH (09:33)
[2019-06-29] MEDS: FOLIC ACID 1 MG TABLET PO SCH (09:33)
[2019-06-29] MEDS: MULTIVITAMINS/MINERALS TABLET PO SCH (09:34)
[2019-06-29] MEDS: LEVOFLOXACIN 750 MG TABLET PO SCH (09:34)
[2019-06-29] MEDS: CLOPIDOGREL 75 MG TABLET PO SCH (09:35)
[2019-06-29] MEDS: AMIODARONE 200 MG TABLET PO SCH ×2 (09:43→13:32)
[2019-06-29] MEDS: SODIUM CHLORIDE FLUSH 10ML SYR IVF SCH ×2 (09:43→21:09)
[2019-06-29] MEDS: NICOTINE 14MG/24 HR PATCH.TD24 TD SCH (15:50)
[2019-06-29] MEDS: ATORVASTATIN 40 MG TABLET PO SCH (21:08)
[2019-06-30 01:11] VITALS: BP 114/70
[2019-06-30 06:00] VITALS: BP 97/58
[2019-06-30] MEDS: CARVEDILOL 3.125 MG TABLET PO SCH ×2 (06:02→18:00)
[2019-06-30] MEDS: ASPIRIN 81 MG TABLET CHEW PO SCH (06:02)
[2019-06-30] MEDS: ENOXAPARIN 40 MG/0.4 ML SQ SCH (09:18)
[2019-06-30] MEDS: CLOPIDOGREL 75 MG TABLET PO SCH (09:18)
[2019-06-30] MEDS: AMIODARONE 200 MG TABLET PO SCH (09:19)
[2019-06-30] MEDS: LISINOPRIL 5 MG TABLET PO SCH (09:19)
[2019-06-30] MEDS: THIAMINE 100MG TABLET PO SCH (09:19)
[2019-06-30] MEDS: FOLIC ACID 1 MG TABLET PO SCH (09:19)
[2019-06-30] MEDS: LACTOBACILLUS CHEW TABLET PO SCH ×3 (09:19→21:46)
[2019-06-30] MEDS: MULTIVITAMINS/MINERALS TABLET PO SCH (09:19)
[2019-06-30] MEDS: LEVOFLOXACIN 750 MG TABLET PO SCH (09:19)
[2019-06-30] MEDS: SODIUM CHLORIDE FLUSH 10ML SYR IVF SCH ×2 (09:20→21:47)
[2019-06-30 13:47] VITALS: BP 95/62
[2019-06-30] MEDS: NICOTINE 14MG/24 HR PATCH.TD24 TD SCH (15:48)
[2019-06-30 18:09] VITALS: BP 83/46
[2019-06-30] MEDS: ATORVASTATIN 40 MG TABLET PO SCH (21:46)
[2019-07-01 02:00] VITALS: BP 101/62
[2019-07-01 06:37] VITALS: BP 106/69
[2019-07-01] MEDS: ASPIRIN 81 MG TABLET CHEW PO SCH (06:37)
[2019-07-01] MEDS: CARVEDILOL 3.125 MG TABLET PO SCH (06:37)
[2019-07-01 07:57] VITALS: BP 96/61
[2019-07-01] MEDS: LISINOPRIL 5 MG TABLET PO SCH (10:30)
[2019-07-01] MEDS: AMIODARONE 200 MG TABLET PO SCH (10:30)
[2019-07-01] MEDS: LACTOBACILLUS CHEW TABLET PO SCH (10:30)
[2019-07-01] MEDS: ENOXAPARIN 40 MG/0.4 ML SQ SCH (10:30)
[2019-07-01] MEDS: CLOPIDOGREL 75 MG TABLET PO SCH (10:30)
[2019-07-01] MEDS: FOLIC ACID 1 MG TABLET PO SCH (10:30)
[2019-07-01] MEDS: SODIUM CHLORIDE FLUSH 10ML SYR IVF SCH (10:31)
[2019-07-01] MEDS: MULTIVITAMINS/MINERALS TABLET PO SCH (10:31)
[2019-07-01] MEDS: THIAMINE 100MG TABLET PO SCH (10:31)
[2019-07-01] MEDS ORDERED: LISI5TAB7 PO (10:44)
[2019-07-01] MEDS ORDERED: AMIO200T42 PO (10:44)
[2019-07-01] MEDS ORDERED: ASPI-515 PO (10:44)
[2019-07-01 14:56] VITALS: BP 86/53
== END 2019-07-01 19:51 | DRG 208 ==
LOC: ED 12:51 → EDIP 12:52 → ED 13:30 → 5SO 16:59 → CCU 20:22 → 5SO 06-25 14:38
PROVIDERS: ADMIT Hospitalist; ATTEND Internal Medicine
PROC: 02HV33Z Insertion of Infusion Device into Superior Vena Cava, Percutaneous Approach (ICD-10-PCS; principal; 2019-06-21)
PROC: 5A1945Z Respiratory Ventilation, 24-96 Consecutive Hours (ICD-10-PCS; 2019-06-21)
PROC: B548ZZA Ultrasonography of Superior Vena Cava, Guidance (ICD-10-PCS; 2019-06-21)
PROC: B5181ZA Fluoroscopy of Superior Vena Cava using Low Osmolar Contrast, Guidance (ICD-10-PCS; 2019-06-21)
PROC: 5A09357 Assistance with Respiratory Ventilation, Less than 24 Consecutive Hours, Continuous Positive Airway Pressure (ICD-10-PCS; 2019-06-21)
PROC: 0BH17EZ Insertion of Endotracheal Airway into Trachea, Via Natural or Artificial Opening (ICD-10-PCS; 2019-06-21)
DX: J96.01 Acute respiratory failure with hypoxia (principal); I21.4 Non-ST elevation (NSTEMI) myocardial infarction; G92 Toxic encephalopathy; I50.43 Acute on chronic combined systolic (congestive) and diastolic (congestive) heart failure; K72.00 Acute and subacute hepatic failure without coma; N17.0 Acute kidney failure with tubular necrosis; J15.1 Pneumonia due to Pseudomonas; J15.6 Pneumonia due to other Gram-negative bacteria; D68.9 Coagulation defect, unspecified; E46 Unspecified protein-calorie malnutrition; E51.2 Wernicke's encephalopathy; E87.1 Hypo-osmolality and hyponatremia; F10.231 Alcohol dependence with withdrawal delirium; Z99.11 Dependence on respirator [ventilator] status; R65.10 Systemic inflammatory response syndrome (SIRS) of non-infectious origin without acute organ dysfunction; D53.9 Nutritional anemia, unspecified; D69.6 Thrombocytopenia, unspecified; I08.0 Rheumatic disorders of both mitral and aortic valves; D75.89 Other specified diseases of blood and blood-forming organs; E83.42 Hypomagnesemia; F03.90 Unspecified dementia, unspecified severity, without behavioral disturbance, psychotic disturbance, mood disturbance, and anxiety; F17.210 Nicotine dependence, cigarettes, uncomplicated; I25.10 Atherosclerotic heart disease of native coronary artery without angina pectoris; I25.2 Old myocardial infarction; I25.5 Ischemic cardiomyopathy; I48.0 Paroxysmal atrial fibrillation; K70.10 Alcoholic hepatitis without ascites; K76.1 Chronic passive congestion of liver; Z95.810 Presence of automatic (implantable) cardiac defibrillator; Z95.5 Presence of coronary angioplasty implant and graft; Z68.25 Body mass index [BMI] 25.0-25.9, adult
CPT/HCPCS: 36415; 36600; 74018; 93017; 99291; J3490; J7620; J7626; 36573; 70450; 71045; 76700; 78452; 78582; 80048; 80053; 80074; 80307; 81001; 82140; 82533; 82607; 82803; 82962; 83605; 83690; 83735; 83880; 84100; 84443; 84478; 84484; 85025; 85027; 85520; 85610; 85730; 87070; 87077; 87081; 87086; 87186; 87205; 93005; 93306; 94002; 94003; 94150; 94640; 94660; G0378; J0295; J1644; J1650; J1956; J2785; J3010; J3360; J3411; J3475; J3480; A9502; A9540; A9558; C1751; C9898; J0282; J1160; J7030; J7050; J7060